=== PATIENT | male | born 1960 | race Caucasian/White ===

== ENCOUNTER 2022-04-01 16:00 | Emergency (ER) | payer OTHER, SELFPAY ==
[2022-04-01 16:09] VITALS: BP 138/71; PULSE 58; RESP 18; TEMP 36.3; O2SAT 100; BMI 30.7
--- NOTE | 2022-04-01 16:14 | DI.RAD.S_ITS ---
PROCEDURE: XR KNEE RT 3V INDICATIONS: fall TECHNIQUE: 3 views of the knee were acquired. COMPARISON: None. FINDINGS: Bones: No fractures or dislocations. No suspicious bony lesions. Soft tissues: No joint effusion. No suspicious soft tissue calcifications. IMPRESSION: No acute radiographic findings. If pain persists, followup imaging in 5-7 days is recommended to exclude occult fracture. Dictated by: Gila Drake M.D. on 04/01/2022 at 16:51 Approved by: Gila Drake M.D. on 04/01/2022 at 16:51
--- NOTE | 2022-04-01 16:27 | ED_ITS ---
HPI - Extremity Injury (Lower) <Henry Capellan PA-C - Last Filed: 04/01/22 17:18> General Chief Complaint: Extremity Injury, Lower Stated Complaint: tweeked rt knee Time Seen by Provider: 04/01/22 16:22 Source: patient Mode of arrival: Wheelchair History of Present Illness HPI Narrative: Patient is a 62-year-old male who was carrying some groceries down some stairs into a boat. He did not see the stairs as he was walking and fell down 1 stair twisted his right leg and felt a popping sensation. He had extreme pain and is unable to bend his knee. He noticed that his quadricep with straining with attempted motion or flexion of the knee. He has extreme pain along the superior portion of the thigh. No other injury reported no loss of consciousness no deformity or swelling reported. No prior injury reported. Related Data Home Medications Medication Instructions Recorded Confirmed aspirin 81 mg tablet,delayed 81 mg PO DAILY 04/01/22 04/01/22 release atenolol 25 mg tablet 12.5 mg PO DAILY 04/01/22 04/01/22 atorvastatin 20 mg tablet (Lipitor) 20 mg PO BEDTIME 04/01/22 04/01/22 lisinopril 2.5 mg tablet 2.5 mg PO DAILY 04/01/22 04/01/22 Previous Rx's Medication Instructions Recorded ibuprofen 800 mg tablet 800 mg PO Q8H PRN pain #21 tabs 04/01/22 Allergies Allergy/AdvReac Type Severity Reaction Status Date / Time No Known Drug Allergies Allergy Verified 04/01/22 16:12 Review of Systems <Henry Capellan PA-C - Last Filed: 04/01/22 17:18> Review of Systems ROS Unobtainable: All systems reviewed & are unremarkable except as noted in HPI and below Constitutional Constitutional: Denies chills, Denies fatigue, Denies fever(s), Denies frequent falls, Denies lethargy and Denies weakness Eyes Eyes: Denies change in vision, Denies eye discharge, Denies irritation and Denies loss of vision ENT Ears, Nose, Mouth, and Throat: Denies change in voice, Denies dizziness, Denies neck pain, Denies sore throat and Denies throat swelling Cardiovascular Cardiovascular: Denies chest pain, Denies irregular heart rhythm, Denies lightheadedness, Denies palpitations, Denies dyspnea, Denies dyspnea on exertion and Denies orthopnea Respiratory Respiratory: Denies cough, Denies dyspnea, Denies dyspnea on exertion and Denies wheezing Gastrointestinal Gastrointestinal: Denies abdominal pain, Denies change in bowel habits, Denies diarrhea, Denies nausea and Denies vomiting Genitourinary Genitourinary: Denies hematuria, Denies flank pain, Denies urinary incontinence and Denies urinary urgency Musculoskeletal Musculoskeletal: Denies back pain, Reports arthralgias, Reports joint swelling, Reports limited range of motion, Denies muscle weakness, Denies neck pain, Denies numbness and Denies tingling Integumentary/Breasts Skin/Breast: Denies pruritus, Denies erythema, Denies rash and Denies wounds Neurologic Neurologic: Denies behavioral changes, Denies confusion, Denies dizziness, Denies frequent falls, Denies loss of vision, Denies numbness, Denies tingling and Denies weakness Psychiatric Psychiatric: Denies anxiety, Denies behavioral changes, Denies confusion, Denies depression, Denies homicidal ideation and Denies suicidal ideation Endocrine Endocrine: Denies fatigue, Denies flushing and Denies palpitations Hematologic/Lymphatic Hematologic/Lymphatic: Denies easy bruising Allergic/Immunologic Allergic/Immunologic: Denies urticaria, Denies throat swelling and Denies wheezing Patient History <Henry Capellan PA-C - Last Filed: 04/01/22 17:18> Social History Smoking Status: Never smoker Smoking Status: Never smoker alcohol intake frequency: holidays/special occasions only Substance Use Type: marijuana Exam <Henry Capellan PA-C - Last Filed: 04/01/22 17:18> Initial Vital Signs Initial Vital Signs: Vital Signs Temperature 97.3 F L 04/01/22 16:09 Pulse Rate 58 L 04/01/22 16:09 Respiratory Rate 18 04/01/22 16:09 Blood Pressure 138/71 04/01/22 16:09 Pulse Oximetry 100 04/01/22 16:09 Oxygen Delivery Method 04/01/22 16:09 Const General: cooperative, healthy appearing and comfortable Nutritional Appearance: average body habitus and well nourished Orientation: Orientation [facility] Head: normal to inspection, normocephalic and atraumatic Ears: hearing grossly normal bilaterally and external ears normal Nose: external nose normal Face and sinus: normal facial exam and sinuses nontender Resp Effort & Inspection: normal respiratory effort and able to speak in complete sentences Extrem Right lower extremity: normal to inspection, hip/thigh Details: abnormal ROM Details: pain with active ROM during and pain with passive ROM during and knee Details: abnormal ROM Details: pain with active ROM during <DO Rena Potter Last Filed: 04/02/22 09:25> Initial Vital Signs Initial Vital Signs: Vital Signs Temperature 97.3 F L 04/01/22 16:09 Pulse Rate 58 L 04/01/22 16:09 Respiratory Rate 18 04/01/22 16:09 Blood Pressure 138/71 04/01/22 16:09 Pulse Oximetry 100 04/01/22 16:09 Oxygen Delivery Method 04/01/22 16:09 Course <RADHA Ash Last Filed: 04/01/22 17:18> Orders Ordered: ED Orders 04/01/22 16:14 XR knee RT 3V Stat Vital Signs Vital signs: Vital Signs - 8 hr 04/01/22 16:09 Temperature 97.3 F L Pulse Rate 58 L Respiratory Rate 18 Blood Pressure 138/71 Pulse Oximetry 100 Oxygen Delivery Method Room Air <DO Rena Potter Last Filed: 04/02/22 09:25> Orders Ordered: ED Orders 04/01/22 16:14 XR knee RT 3V Stat Vital Signs Vital signs: Vital Signs - 8 hr 04/01/22 16:09 Temperature 97.3 F L Pulse Rate 58 L Respiratory Rate 18 Blood Pressure 138/71 Pulse Oximetry 100 Oxygen Delivery Method Room Air MDM - Extremity Injury (Lower) <RADHA Ash Last Filed: 04/01/22 17:18> Differential Diagnosis Differential diagnosis: Likely other Imaging Data Extremity x-ray #1: Radiologist's Impression: [address] [address] XRay Report Signed Patient: Artis Dixon MR#: [id number] : 1960 Acct:[id number] Age/Sex: 62 / M Date of Service: 04/01/22 Loc: ED Accession Number: [id number] ?? Procedure: XR knee RT 3V Ordering Provider: Eleanor Orellana D.O. PROCEDURE:? XR KNEE RT 3V ? INDICATIONS:? fall ? TECHNIQUE:? 3 views of the knee were acquired.? ? COMPARISON:? None. ? FINDINGS:? ? Bones:? No fractures or dislocations.? No suspicious bony lesions.? ? Soft tissues:? No joint effusion.? No suspicious soft tissue calcifications.? ? ? IMPRESSION:? No acute radiographic findings. If pain persists, followup imaging in 5-7 days is recommended to exclude occult fracture. ? ? Dictated by: Gila Drake M.D. on 04/01/2022 at 16:51 ? ? Approved by: Gila Drake M.D. on 04/01/2022 at 16:51?? MDM Narrative Medical decision making narrative: Patient was seen today for pain in his right knee and thigh. Knee x-ray did not show any evidence of any fracture or dislocation. Clinical exam does suggest a quadriceps strain. A knee immobilizer was applied and anti-inflammatory medications was recommended. I spoke to him regarding elevating and applying ice. If no improvement in 1-2 weeks he can follow up with an family development extension specialist for further evaluation and treatment. Patient will be discharged home. Weightbearing as tolerated Discharge Plan Departure Patient Disposition: Home Clinical Impression: Quadriceps muscle strain Qualifiers: Encounter type: initial encounter Laterality: right Qualified Code(s): S76.111A - Strain of right quadriceps muscle, fascia and tendon, initial encounter Instructions: DI for Quadriceps Strain Activity Restrictions/Additional Instructions: You were seen today for your right knee pain. As we spoke earlier I think it is likely a result of a quadriceps strain. You can use the knee immobilizer if it brings you comfort I would recommend that the knee stay in the immobilizer as much as possible. I would recommend bearing weight on your leg as much as possible. When you are not walking you should have it elevated with some ice applied to the area. If you do not have any improvement in your symptoms in 1-2 weeks should follow up with an family development extension specialist for further evaluation and treatment. You can take ibuprofen 600-800 mg every 6-8 hours as needed for pain. Prescriptions: New ibuprofen 800 mg tablet 800 mg PO Q8H PRN (Reason: pain) Qty: 21 0RF No Action atorvastatin [Lipitor] 20 mg Tablet 20 mg PO BEDTIME atenolol 25 mg Tablet 12.5 mg PO DAILY aspirin [Aspir-81] 81 mg Tablet,Delayed Release (Dr/Ec) 81 mg PO DAILY lisinopril 2.5 mg Tablet 2.5 mg PO DAILY Visit Report Forms: Patient Portal/API <Eleanor Orellana DO - Last Filed: 04/02/22 09:25> Cosign ED Attending Erinature Attestation: I was immediately available in the department for consultation. Documentation has been reviewed. I agree with assessment and plan.
--- NOTE | 2022-04-01 16:56 | PC.NURSE ---
pt states he was carrying a box down a narrow stairway on the boat and he slipped/tripped. he stated his knee was instantly in excruitiating pain. he denies hearing a pop but states his knee cap and knee didn't look right. states it is only comfortable while straight and he is unable to stand on that leg at all due to pain. normal sensation bilaterally, able to wiggle toes and pulses feel equal bilaterally.
[2022-04-01 17:39] VITALS: BP 140/72; PULSE 51; O2SAT 97
== END 2022-04-01 17:53 | disposition home or self-care (01) ==
PROVIDERS: Emergency Provider Physician Assistant
DX: S76.111A Strain of right quadriceps muscle, fascia and tendon, initial encounter (principal); W10.9XXA Fall (on) (from) unspecified stairs and steps, initial encounter
CPT/HCPCS: 73562; 99283